=== PATIENT | male | born 1975 | race Caucasian/White ===

== ENCOUNTER 2020-09-16 13:21 | Outpatient (REF) | payer OTHER, SELFPAY ==
[2020-09-19 11:15] LABS: SARS-COV-2 PCR UMBRL Not Detected
== END 2020-09-16 13:22 | disposition home or self-care (01) ==
LOC: HO.EMPCOV 13:21
PROVIDERS: Visit Provider Internal Medicine
DX: Z20.822 Contact with and (suspected) exposure to COVID-19 (principal)
CPT/HCPCS: 36415; C9803; U0003

== ENCOUNTER 2020-09-24 08:16 | Outpatient (REF) | payer OTHER, SELFPAY ==
[2020-09-26 13:30] LABS: SARS-COV-2 PCR UMBRL Not Detected
== END 2020-09-24 08:17 | disposition home or self-care (01) ==
LOC: HO.LAB 08:16
PROVIDERS: Visit Provider Internal Medicine
DX: Z20.822 Contact with and (suspected) exposure to COVID-19 (principal)
CPT/HCPCS: 36415; C9803; U0003

== ENCOUNTER → 2020-12-11 13:55 | Outpatient (REF) | payer OTHER, SELFPAY ==
--- NOTE | 2020-12-11 14:00 | CA_ITS ---
Transthoracic Echocardiogram Patient (Last, First, Middle): Santo Ferrari A Gender: Male Date of : 1975 Age: 44 Procedure Date: 12/11/2020 Procedure Type: Transthoracic Echocardiogram Location: OP Height: 187.96 cm Weight: 99.79 kg BSA: 2.26 m2 Heart Rate: bpm BP: 120 / 70 mmHg Business Systems Manager: KRISTA Referring MD: Ang Mccrary MD Syrup Blender: Carroll Urbina MD Symptoms: CARDIAC MURMUR R01.1 Study Quality: Fair ECG Rhythm: Sinus Conclusions: - 1. Normal LV systolic function with impaired relaxation filling pattern 2. Mild aortic regurgitation with mild fibrocalcific aortic valve changes 3. Mildly dilated ascending aorta 4. No pericardial effusion Findings Left Ventricle Normal left ventricular size, thickness, and systolic function. The visually estimated ejection fraction is between 60-65%. Spectral Doppler is indicative of an impaired relaxation filling pattern. E/E prime ratio is <8, consistent with normal filling pressures. Evidence suggests grade I (mild) diastolic dysfunction. Right Ventricle Normal right ventricular cavity size and systolic function. Atria Both atria are normal in size. There is no evidence of interatrial shunt. Aortic Valve There is mild calcification of the aortic valve. There is mild thickening of the aortic valve. There is no aortic valve stenosis. There is mild aortic valve regurgitation. Mitral Valve Normal mitral valve structure and function. There is mild mitral annular calcification. There is trace mitral valve regurgitation. There is no mitral valve stenosis. Pulmonic Valve The pulmonic valve was not well visualized. Tricuspid Valve Likely normal tricuspid valve structure and function. There is no tricuspid valve regurgitation. Tricuspid regurgitation envelope is inadequate for calculation of right ventricular systolic pressure. Great Vessels The pulmonary artery was not well visualized. There is mild dilatation of the ascending aorta measuring 3.90 cm. Venous The inferior vena cava is normal in size and collapses greater than 50% with inspiration. Pericardium/Pleural There is no evidence of pericardial effusion. Prior Study Comparison No prior study available for comparison. Measurements M-Mode Liner Measurements Normals - Women/Men IVSd: 1.47 0.6-0.9/0.6-1.0 cm 2D Linear Measurements IVSd: 1.29 0.6-0.9/0.6-1.0 cm LVIDd: 4.28 3.9-5.3/4.2-5.9 cm LVIDd Index: 1.89 2.4-3.2/2.2-3.1 cm/m2 LVIDs: 2.87 2.0-3.6 cm LVPWd: 1.07 0.7-1.1 cm Ao Root: 3.60 2.1-3.5 cm LA Diam: 3.40 2.7-3.8/3.0-4.0 cm LAIDs Index: 1.50 1.5-2.3 cm/m2 LV Mass: 222.93 67-162/88-224 g LV Mass Index: 98.64 43-95/49-115 g/m2 LVOT Diam: 2.30 3.0+(-)1.3 cm 2D Systolic Function EF 4C: 64.30 >55% EF 2C: 36.20 >55% Mitral Valve MV Pk E: 0.75 MV PK A: 0.88 MV Decel Time: 165.00 E/A: 0.90 E'Lateral: 8.27 E'Medial: 5.00 E/E' Med: 14.90 E/E' Lat: 9.00 PHT: 48.00 MVA PHT: 4.58 Decel Morris: 4.53 Aortic Valve AoV Pk Usama: 1.78 AoV Pk Grad: 13.00 AI Pk Usama: 3.72 AI Morris: 1.18 LVOT LVOT Pk Usama: 0.91 LVOT Mn Usama: 0.67 LVOT VTI: 0.18 LVOT Pk Grad: 3.00 LVOT Mn Grad: 2.00 LVOT Diam: 2.30 LVOT Area: 4.15 Diastolic Function MV Pk E: 0.75 MV Pk A: 0.88 E/A: 0.90 E'Medial: 5.00 E/E' Med: 14.90 E' Laterial: 8.27 E/E' Lat: 9.00 Tricuspid Valve RA Press: 3.00 Great Vessels Aorta Ao Root-2D: 3.60 2.0-3.7 cm Ao Asc: 3.90 2.1-3.4 cm Updated in Other Vendor System with Status of Final Carroll Urbina MD electronically signed on 12/11/2020 4:44:20 PM with status of Final
== END ==
LOC: HO.CARD 13:55
PROVIDERS: PCP Family Medicine; Visit Provider Family Medicine
DX: R01.1 Cardiac murmur, unspecified (principal)
CPT/HCPCS: 93306

== ENCOUNTER 2022-04-20 08:41 | Outpatient (REF) | payer OTHER, SELFPAY ==
--- NOTE | ~2022-04-20 | XR_ITS ---
EXAMINATION: XR WRIST, RIGHT CLINICAL INFORMATION: Fracture right breast COMPARISON: None TECHNIQUE: PA, lateral, and oblique views of the right wrist. FINDINGS: There is an intra-articular longitudinal fracture distal radius. There is no distraction. No visible depression or angulation radial articular surface. The ulnar variance is neutral. The carpal bones appear intact. Bony mineralization is normal. No joint narrowing or erosive change or chondrocalcinosis. XR/XR wrist RT min 3V IMPRESSION: Longitudinal intra-articular hairline fracture distal right radius.
== END 2022-04-20 08:42 | disposition home or self-care (01) ==
LOC: HO.HOSX 08:41
PROVIDERS: Visit Provider Physician Assistant
DX: M25.531 Pain in right wrist (principal)
CPT/HCPCS: 73110

== ENCOUNTER 2022-04-21 13:15 | Outpatient (REF) | payer OTHER, SELFPAY ==
--- NOTE | ~2022-04-21 | CT_ITS ---
EXAMINATION: CT WRIST WITHOUT CONTRAST, RIGHT CLINICAL INFORMATION: Fracture. COMPARISON: Right wrist radiographs dated 04/20/2022. TECHNIQUE: Axial CT images of the right wrist were obtained without contrast. Multiplanar reformats were provided and reviewed. This CT examination was performed using dose optimization techniques as appropriate, variously including the following: *Automated exposure control *Adjustment of mA and/or kV according to patient size (this includes techniques or standardized protocols for targeted exams where dose is matched to indication/reason for exam; i.e. extremities or head) *Use of iterative reconstruction technique DLP: 136 mGy-cm. FINDINGS: Comminuted, mildly displaced fracture through the distal radius. There is a dominant oblique component through the ulnar aspect of the distal radius which contacts the radial articular surface without significant cortical step-off. The fracture gap measures up to 0.1 cm. An additional, oblique component is noted along the dorsal aspect of the distal radius with a resulting fracture fragment measuring up to 1.7 cm in dimension. There is mild posterior displacement with the largest fracture gap measuring up to 0.3 cm along the articular surface. No additional fracture. No dislocation. Normal carpal alignment. No joint space narrowing or marginal osteophytes. No concerning lytic or blastic osseous lesion. No abnormal soft tissue mass or fluid collection. Small radiocarpal joint effusion. The visualized flexor and extensor tendons are grossly intact. CT/CT wrist RT wo con IMPRESSION: Comminuted and mildly displaced fracture through the distal radius with a dominant oblique fracture medially which contacts the articular surface without significant cortical step-off. There is a resultant dorsal fracture fragment measuring up to 1.7 cm with the largest fracture gap along the articular surface measuring up to 0.3 cm. Small radiocarpal joint effusion.
== END 2022-04-21 13:16 | disposition home or self-care (01) ==
LOC: HO.CT 13:15
PROVIDERS: Visit Provider Orthopaedic Surgery
DX: S62.101A Fracture of unspecified carpal bone, right wrist, initial encounter for closed fracture (principal)
CPT/HCPCS: 73200

== ENCOUNTER 2022-04-27 08:32 | Outpatient (REF) | payer OTHER, SELFPAY ==
--- NOTE | ~2022-04-27 | XR_ITS ---
EXAMINATION: XR WRIST, RIGHT CLINICAL INFORMATION: Distal radial fracture. COMPARISON: Radiographs right wrist 04/20/2022, CT right breast 04/21/2022 TECHNIQUE: PA, lateral, and oblique views of the right wrist. FINDINGS: There is a nondisplaced comminuted hairline fracture distal radius extending to the distal radial articular surface. No interval change in alignment or distraction. The ulnar variance is neutral. There is no dislocation or destructive process. XR/XR wrist RT min 3V IMPRESSION: Hairline intra-articular fracture distal right radius stable in alignment.
--- NOTE | ~2022-04-27 | XR_ITS ---
EXAMINATION: XR WRIST, RIGHT CLINICAL INFORMATION: Fracture of unspecified carpal bone. Right wrist COMPARISON: Right wrist 04/27/2022 TECHNIQUE: PA, lateral, and oblique views of the right wrist. FINDINGS: Distal radial fracture intra-articular extension has been stabilized with right wrist in a cast. There is no displacement. No additional fracture seen. XR/XR wrist RT 2V IMPRESSION: Stabilized distal radial intra-articular fracture with right wrist in a cast. No major change compared to 04/27/2022.
== END 2022-04-27 08:33 | disposition home or self-care (01) ==
LOC: HO.HOSX 08:32
PROVIDERS: Visit Provider Orthopaedic Surgery
DX: S62.101A Fracture of unspecified carpal bone, right wrist, initial encounter for closed fracture (principal)
CPT/HCPCS: 73100; 73110

== ENCOUNTER 2022-05-01 13:44 | Outpatient (REF) | payer OTHER, SELFPAY ==
--- NOTE | ~2022-05-01 | CT_ITS ---
EXAMINATION: CT WRIST WITHOUT CONTRAST, RIGHT CLINICAL INFORMATION: Fracture. COMPARISON: Most recent right wrist radiograph dated 04/27/[address] dated 04/21/2022. TECHNIQUE: Axial CT images of the right wrist were obtained without contrast. Sagittal and coronal reformats were provided and reviewed. This CT examination was performed using dose optimization techniques as appropriate, variously including the following: *Automated exposure control *Adjustment of mA and/or kV according to patient size (this includes techniques or standardized protocols for targeted exams where dose is matched to indication/reason for exam; i.e. extremities or head) *Use of iterative reconstruction technique DLP: 137 mGy-cm. FINDINGS: Redemonstration of a comminuted distal radial fracture with an oblique component along the ulnar aspect of the distal radius and a resultant posterior fracture fragment. The fracture lines are again noted to contact the central aspect of the radiocarpal articular surface. Overall, there is no significant interval change in osseous alignment when compared to the prior CT. No significant new bone/callus formation. No additional fracture or dislocation. No joint space narrowing or marginal osteophytes. No concerning lytic or blastic osseous lesion. No abnormal soft tissue mass or fluid collection. The visualized flexor and extensor tendons are grossly intact. CT/CT wrist RT wo con IMPRESSION: Comminuted distal radial fracture contacting the articular surface in unchanged anatomic alignment when compared to the CT dated 04/21/2022. No significant interval new bone/callus formation.
== END 2022-05-01 13:45 | disposition home or self-care (01) ==
LOC: HO.CT 13:44
PROVIDERS: Visit Provider Orthopaedic Surgery
DX: S62.101A Fracture of unspecified carpal bone, right wrist, initial encounter for closed fracture (principal); X58.XXXA Exposure to other specified factors, initial encounter; Y93.9 Activity, unspecified; Y92.9 Unspecified place or not applicable; Y99.9 Unspecified external cause status
CPT/HCPCS: 73200

== ENCOUNTER 2022-06-01 | Outpatient (REF) | payer OTHER, SELFPAY ==
--- NOTE | ~2022-06-01 | XR_ITS ---
EXAMINATION: XR WRIST, RIGHT CLINICAL INFORMATION: S62.101A - Fracture of unspecified carpal bone, right wrist, initial enc... COMPARISON: CT dated 05/01/2022 and radiograph dated 04/27/2022 TECHNIQUE: PA, lateral, and oblique views of the right wrist. FINDINGS: A comminuted intra-articular fracture at the distal radius with a sagittal component extending from the articular surface to the lateral cortex at the proximal metadiaphysis. This fracture remains nondisplaced. No appreciable articular cortical offset on these images. No new fractures. Mild soft tissue swelling. XR/XR wrist RT min 3V IMPRESSION: Unchanged alignment of the comminuted intra-articular fracture of the distal radius. No discrete radiographic findings of healing.
== END 2022-06-01 00:01 | disposition home or self-care (01) ==
LOC: HO.HOSX
PROVIDERS: Visit Provider Orthopaedic Surgery
DX: S62.101A Fracture of unspecified carpal bone, right wrist, initial encounter for closed fracture (principal)
CPT/HCPCS: 73110

== ENCOUNTER 2022-12-02 08:14 | Day surgery (SDC) | payer OTHER, SELFPAY ==
--- NOTE | 2022-12-01 13:09 | HO.ANESPROP2 ---
Documented by User: Lorraine Ryan NP 12/01/22 13:10 HPI - Anesthesia Eval Consult details Narrative: 46yo M for Colonoscopy PMFSH Active Problems Active Problems: All Active Problems (Updated 11/26/22 @ 14:27 by Mayelin Johnson RN) Right wrist fracture (Acute) Past Medical History Medical History HTN (hypertension) Hypothyroidism Surgical History Surgical History Hx of appendectomy Social History Social History Patient Tobacco Use Status: Never used Tobacco Use of substances other than those prescribed or required for medical reasons: No Are you DNR?: No Advance Directives: No Advance Directives Information Provided: Yes Meds Allergies Allergy/AdvReac Type Severity Reaction Status Date / Time No Known Allergies Allergy Verified 11/26/22 14:05 Home Medications Medication Instructions Recorded Confirmed Last Taken Type amlodipine 10 mg tablet 1 tab PO DAILY 11/26/22 11/26/22 Unknown History levothyroxine 175 mcg tablet 1 tab PO DAILY 11/26/22 11/26/22 Unknown History losartan 25 mg tablet 1 tab PO DAILY 11/26/22 11/26/22 Unknown History Exam Exam Date and Time: December 01, 2022 130 Narrative Narrative: ECHO 2020 Conclusions: -? 1. Normal LV systolic function with impaired relaxation ? ? ? filling pattern? 2. Mild aortic regurgitation with mild fibrocalcific aortic valve changes? 3. Mildly dilated ascending aorta? 4. No pericardial effusion ? Assessment and Plan Assessment Anesthesia Assessment: Chart Reviewed Documented by User: Tucker Arthur MD 12/02/22 08:32 [facility] Past Medical History Medical History HTN (hypertension) Hypothyroidism Family History Family history of problems with anesthesia: No Surgical History Surgical History Hx of appendectomy History of Problems with Anesthesia: No Social History Social History Patient Tobacco Use Status: Never used Tobacco Use of substances other than those prescribed or required for medical reasons: No Are you DNR?: No Advance Directives: No Advance Directives Information Provided: Yes Meds Allergies Allergy/AdvReac Type Severity Reaction Status Date / Time No Known Allergies Allergy Verified 11/26/22 14:05 Home Medications Medication Instructions Recorded Confirmed Last Taken Type amlodipine 10 mg tablet 1 tab PO DAILY 11/26/22 11/26/22 Unknown History levothyroxine 175 mcg tablet 1 tab PO DAILY 11/26/22 11/26/22 Unknown History losartan 25 mg tablet 1 tab PO DAILY 11/26/22 11/26/22 Unknown History Exam Airway Mallampati Class: II TM Dist: >3cm Neck ROM: Full Loose/Missing/Broken Teeth: No Heart: [id number] Lungs: cta b/l Assessment and Plan Assessment Anesthesia Assessment: Anesthesia Plan Discussed Final Anesthetic Review Family History of Problems with Anesthesia: No History of Problems with Anesthesia: No NPO: Yes ASA Class: II Final Preanesthetic Review: No Changes in Pt Med Stat, Meds/Allgs Chart Reviewed, Consent Obtained/Reviewed and Anes Risks/Benef Reviewed Patient Risk: Intermediate Procedure Risk: Low Assessment/Block/Sedation in SS: Assess/Block/Sedation-SS Anesthetic Plan Anesthetic Plan: MAC: and Agree w/ Assess. and Plan Disposition: Standard PACU
[2022-12-02 08:21] VITALS: BMI 26.9
[2022-12-02 08:33] VITALS: BP 128/84; PULSE 91; RESP 15; TEMP 36.1; O2SAT 99
[2022-12-02] MEDS: Lactated Ringers 1,000 ML 100 ML IVCONT (08:41)
--- NOTE | 2022-12-02 08:45 | MHC.SHP ---
Pre-Procedural Eval Section A Date of Service: 12/02/22 Section B Chief Complaint: screening Relevant Family History (Specify if Yes): No Relevant Social History: None Present Medications: see Short Stay Collaborative assessment Medical History: Significant History (HTN (hypertension) Hypothyroidism) History of Previous Operations: Relevant previous surgery/procedure and date(s) (appendectomy) Allergies: Allergies Allergy/AdvReac Type Severity Reaction Status Date / Time No Known Allergies Allergy Verified 12/02/22 08:44 Review of Systems Sugical H&P ROS: Negative: Constitution, Cardiovascular, Respiratory, Neurological, Psychiatric, Hem-Onc, Allergic/Immunologic, Gastrointestinal, Genitourinary, Musculoskeletal, Integumentary, Endocrine and Eyes/Ears/Nose/Throat Exam Surgical H&P Exam: Normal: HEENT, Normal: Heart, Normal: Lungs, Normal: Extremities, Normal: Abdomen and Normal: Neurological and Significant Findings: Skin (xanthelasma around eyes) Plan Diagnosis/Plan: Unchanged I have reviewed the history and physical and performed a pertinent physical examination on my patient. No changes have occurred unless specified. Time Spent With Patient Time: Total time managing care of this patient today ____ minutes.
--- NOTE | 2022-12-02 09:23 | P.OP_ITS ---
Operative Note Operative Note Date of Service: 12/02/22 Narrative: Operative Information Procedure Description: Colonoscopy Indication: screening Anesthesia: MAC COLONOSCOPY Instrument: Olympus variable stiffness ADULT scope 190L Colonoscopy Monitoring: Vital signs and clinical assessment, continuous EKG monitoring, Pulse oximetry, Carbon Dioxide monitoring and blood pressure monitoring were done throughout the procedure. Colon withdrawal time was 13 minutes. Procedure: The patient was placed in the left lateral decubitis position and pre-procedure medications were administered. After a digital rectal examination of the ano-rectum, the video colonoscope was inserted into the rectum and advanced through the colon to the cecum/TI. The colonoscope was slowly withdrawn in a retrograde panoramic fashion and the colon mucosa was carefully examined including a retroflexed view of the rectum. Findings and interventions are described below. Procedure Difficulty: easy Findings: Terminal Ileum-normal Cecum:normal Ascending Colon: normal Transverse Colon -normal Descending Colon:normal Sigmoid Colon: mild pigmentation, possibly consistent with melanosis coli Rectum: Retroflexion with small internal hemorrhoids, grade I, Patchy erythema and mild pigmentation, random bx taken. Also 8-9 mm sessile polpy noted and removed with cold snare Anorectum - normal Colon preparation: [place] Bowel Preparation Scale Right colon; 2 Transverse colon: 3 Left colon; 3 (0 = Unprepared colon segment with mucosa not seen due to solid stool that cannot be cleared. 1 = Portion of mucosa of the colon segment seen, but other areas of the colon segment not well seen due to staining, residual stool and/or opaque liquid. 2 = Minor amount of residual staining, small fragments of stool and/or opaque liquid, but mucosa of colon segment seen well. 3 = Entire mucosa of colon segment seen well with no residual staining, small fragments of stool or opaque liquid) Impression and Post Procedure Diagnosis: melanosis coli-mild internal hemorrhoids non specific patchy inflammation of distal rectum, maybe prep artifact colon polyp Plan: High fiber diet leaflet Avoid straining at stool, epsom salts and sitz bath, anusol supps or cream Repeat Colonoscopy in 5-7 years if adenomatous polyp, otherwise 10 yrs or earlier if clinically indicated Above findings were reviewed with the patient and relevant handouts were provided if indicated.
[2022-12-02 09:50] VITALS: BP 101/56; PULSE 76; RESP 16; TEMP 36.4; O2SAT 96
[2022-12-02 10:05] VITALS: BP 108/70; PULSE 70; RESP 18; TEMP 36.4; O2SAT 96
== END 2022-12-02 10:43 | disposition home or self-care (01) ==
PROVIDERS: PCP Family Medicine; Visit Provider Internal Medicine Gastroenterology
PROC: 0DJD8ZZ Inspection of Lower Intestinal Tract, Via Natural or Artificial Opening Endoscopic (ICD-10-PCS; CPT 45378; principal; 2022-12-02 09:20)
DX: Z12.11 Encounter for screening for malignant neoplasm of colon (principal); D12.8 Benign neoplasm of rectum; K63.89 Other specified diseases of intestine; K64.0 First degree hemorrhoids; I10 Essential (primary) hypertension; E03.9 Hypothyroidism, unspecified; Z79.899 Other long term (current) drug therapy
CPT/HCPCS: 45378; 88305; J2250